=== PATIENT | female | born 1995 | race Caucasian/White ===

== ENCOUNTER 2025-07-31 08:24 | Emergency (ER) | payer SELFPAY ==
[2025-07-31] MEDS ORDERED: Ibuprofen 800 MG TAB ONE (08:41)
[2025-07-31] MEDS ORDERED: Dexamethasone 10 MG/ML VIAL ONE (08:41)
== END 2025-07-31 09:20 | disposition home or self-care (01) ==
LOC: ERS 08:24
DX: B34.9 Viral infection, unspecified (principal); F17.210 Nicotine dependence, cigarettes, uncomplicated
CPT/HCPCS: 87081; 87428; 87430; 99283; J1100